=== PATIENT | female | born 1960 | race Caucasian/White ===

== ENCOUNTER → 2017-05-23 | Outpatient (CLI) | payer BC, MEDICARE ==
--- NOTE | 2017-05-28 09:21 | MM ---
Reason for exam: screening (asymptomatic). Last mammogram was performed 2 years ago. History: Patient is postmenopausal. Physical Findings: A clinical breast exam by your physician is recommended on an annual basis and results should be correlated with mammographic findings. MG Screening Mammo w CAD Bilateral CC and MLO view(s) were taken. Prior study comparison: May 16, 2015, mammogram, performed at [facility]. November 30, 2013, mammogram, performed at [facility]. The breast tissue is heterogeneously dense. This may lower the sensitivity of mammography. Scattered round calcifications in the right breast are unchanged. ASSESSMENT: Negative, BI-RAD 1 RECOMMENDATION: Routine screening mammogram of both breasts in 1 year.
== END | disposition home or self-care (01) ==
LOC: RADMAMWWP 13:10
PROVIDERS: ATTEND Obstetrics & Gynecology
DX: Z12.31 Encounter for screening mammogram for malignant neoplasm of breast (principal)

== ENCOUNTER → 2017-11-26 | Outpatient (CLI) | payer OTHER, MEDICARE | END | disposition home or self-care (01) | LOC: LABWHC1 13:22 | PROVIDERS: ATTEND Nurse Practitioner Acute Care | DX: I49.9 Cardiac arrhythmia, unspecified (principal) | CPT/HCPCS: 36415; 93005 ==

== ENCOUNTER → 2018-01-08 | Outpatient (CLI) | payer OTHER, MEDICARE ==
--- NOTE | 2018-01-09 08:22 | MR ---
EXAMINATION TYPE: MR lumbar spine wo con DATE OF EXAM: 01/08/2018 COMPARISON: None HISTORY: Low back pain TECHNIQUE: Multiplanar, multisequence images of the lumbar spine were acquired without intravenous contrast. FINDINGS: Vertebral bodies of the lumbar spine maintains normal vertebral body heights. There is very mild grade 1 anterolisthesis of L4 on L5. Remainder the lumbar spine maintains normal alignment. The re appears to be a unilateral left pars interarticularis defect at L4. 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 Conus medullaris is unremarkable terminating at L1-L2. Multilevel int ervertebral disc desiccation is present. Bone marrow signal is within normal limits. L1-L2: Normal disc appearance without desiccation. No herniation, protrusion or disc bulging. No ca nal stenosis is present. Foramina are patent bilaterally. L2-L3: There is a small broad-based disc bulge without neural foraminal narrowing or spinal canal abhishek nosis. L3-L4: Normal disc appearance without desiccation. No herniation, protrusion or disc bulging. No ca nal stenosis is present. Foramina are patent bilaterally. Mild ligamentum flavum buckling and facet arthropathy are seen. L4-L5: There is mild disc uncovering and a small left eccentric broad-based disc bulge creating minim al left neural foraminal narrowing in combination with facet arthropathy. No spinal canal stenosis or right-sided neural foraminal narrowing. L5-S1: Very small broad-based disc bulge is seen without neural foraminal narrowing or spinal canal s tenosis. Mild facet arthropathy is present at this level. IMPRESSION: 1. Multilevel mild degenerative disc disease without spinal canal stenosis or disc herniation. 2. Minimal left neural foraminal narrowing at L4-L5 as a result of a left eccentric broad-based disc bulge and facet arthropathy. 3. Grade 1 anterolisthesis of L4 on L5 with unilateral left pars interarticularis defect. This result s in mild disc uncovering.
--- NOTE | 2018-01-09 16:45 | MR ---
MRI BRAIN AND CERVICAL SPINE: 05/11/2018 CLINICAL HISTORY: Headache and neck pain TECHNIQUE: Multiplanar, multisequence imaging of the brain and cervical spine was performed without i ntravenous contrast. COMPARISON: 09/20/2010 cervical spine FINDINGS: Brain: Diffusion weighted images demonstrate no evidence of a recent infarct or other diffusion abnormality. There is no extra-axial fluid collection. Few punctate foci of nonspecific white matter change are seen within the periventricular and subcortical white matter with the largest measuring 3 mm in the r ight parietal lobe on FLAIR fat sat image 20. 2 prominent perivascular spaces are seen at the level o f the inferior basal ganglia. Major intracranial flow voids are maintained. The ventricular system a nd cisternal spaces are normal in size and appearance. The brain volume is age appropriate. Midline structures demonstrate normal morphology. The craniocervical junction appears within normal limits. The dural venous sinuses appear patent. Mild mucosal thickening is seen of the ethmoid sinus es. The remaining visualized sinuses are clear and the globes are intact. Cervical Spine: The cervical spine vertebral bodies maintain normal vertebral body heights. There is very mild earle listhesis of C7 on T1, likely on a degenerative basis. This results in disc uncovering. Cervical spin e signal is within normal limits. Bone marrow signal is also within normal limits. Multilevel disc de siccation is seen throughout the cervical spine. C2-C3: There is a small central disc osteophyte complex with severe left facet arthropathy and mild b ilateral uncovertebral hypertrophy resulting in severe left neural foraminal narrowing. Spinal canal and right neural foramen are patent. C3-C4: There is facet arthropathy and uncovertebral hypertrophy in combination with a broad-based dis c bulge that create moderate bilateral neural foraminal narrowing. No significant spinal canal stenos is at this level. C4-C5: There is a small posterior disc osteophyte complex, broad-based disc bulge, facet arthropathy and uncovertebral hypertrophy that create obscuration of the ventral subarachnoid space and impressio n upon the ventral cervical cord without alteration in signal. These result in severe left neural for aminal narrowing, moderate right neural foraminal narrowing and mild spinal canal stenosis. C5-C6: There is a small central disc herniation superimposed upon a broad-based disc bulge with facet arthropathy and uncovertebral hypertrophy. These create mild spinal canal stenosis without alteratio n in signal of the cervical cord, effacing the ventral subarachnoid space and create mild left neural foraminal narrowing. Right neural foramen appears patent. C6-C7: There is a small central disc herniation superimposed upon a broad-based disc bulge that is le ft eccentric. This in combination with uncovertebral hypertrophy and facet arthropathy creating moder ate left neural foraminal narrowing and mild spinal canal stenosis. Right neuroforamen remains patent . C7-T1: Disc uncovering is seen as there is very mild anterolisthesis of C7 on T1. There is also a bro ad-based disc bulge at resulting in minimal spinal canal stenosis and mild bilateral neural foraminal narrowing examination with facet arthropathy and ligamentum flavum buckling. IMPRESSION: 1. Very mild burden nonspecific white matter change with the largest lesion measuring 4 mm. Findings are favored to relate to chronic microangiopathy or migraines given the distribution. 2. Minimal ethmoidal paranasal sinus disease. 3. Multilevel moderate degenerative disc disease of the cervical spine most severe at C4-C5 resulting in severe left neural foraminal narrowing, moderate right neural foraminal narrowing and mild spinal canal stenosis. Other variable degrees of neural foraminal narrowing are described above. 4. Small central disc herniation at C5-C6 that in combination with degenerative change create mild sp inal canal stenosis and mild left neural foraminal narrowing. 5. Small central disc herniation at C6-C7 in combination with degenerative disc disease crating mild spinal canal stenosis and moderate left neural foraminal narrowing. 6. Very mild anterolisthesis of C7 on T1 (grade 1) is seen in addition to mild spinal canal stenosis and mild bilateral neural foraminal narrowing at this level.
== END | disposition home or self-care (01) ==
LOC: RADMRIMAIN 12:47
PROVIDERS: ATTEND Psychiatry & Neurology Neurology
DX: G93.9 Disorder of brain, unspecified (principal); R90.82 White matter disease, unspecified; J32.2 Chronic ethmoidal sinusitis; M50.321 Other cervical disc degeneration at C4-C5 level; M99.71 Connective tissue and disc stenosis of intervertebral foramina of cervical region; M48.02 Spinal stenosis, cervical region; M50.222 Other cervical disc displacement at C5-C6 level; M43.13 Spondylolisthesis, cervicothoracic region; M51.36 Other intervertebral disc degeneration, lumbar region; M99.73 Connective tissue and disc stenosis of intervertebral foramina of lumbar region; M51.26 Other intervertebral disc displacement, lumbar region; M48.8X6 Other specified spondylopathies, lumbar region; M43.16 Spondylolisthesis, lumbar region; Z88.0 Allergy status to penicillin
CPT/HCPCS: 70551; 72141; 72148

== ENCOUNTER 2021-04-11 09:36 | Day surgery (SDC) | payer MEDICARE, OTHER ==
[2021-04-09 14:23] VITALS: BMI 35.5
[2021-04-11 10:26] VITALS: TEMP 97.1
[2021-04-11] MEDS ORDERED: LACTATED RINGERS 1,000 ML IV ONE (10:32)
[2021-04-11] MEDS ORDERED: LIDOCAINE 1% INJ 10MG/ML (20 ML MDV) ONE (10:44)
[2021-04-11] MEDS ORDERED: PROPOFOL 10 MG/ML 20 ML VIAL IV ONE (10:44)
--- NOTE | 2021-04-11 11:11 | P.PCN ---
Date of Procedure: 04/11/21 Procedure(s) Performed: BRIEF HISTORY: Patient is a 61-year-old pleasant female scheduled for an elective colonoscopy as a part of screening for colorectal neoplasia. PROCEDURE PERFORMED: Colonoscopy. PREOPERATIVE DIAGNOSIS: Screening for colon cancer. IV sedation per Anesthesia. PROCEDURE: After informed consent was obtained, the patient, was brought into the endoscopy unit. IV sedation was administered by Anesthesia under continuous monitoring. Digital rectal examination was normal. Initially the Olympus CF-160 flexible video colonoscope was then inserted in the rectum, gradually advanced into the cecum without any difficulty. Careful examination was performed as the scope was gradually being withdrawn. Ileocecal valve and the appendiceal orifice were visualized and appeared normal. Prep was fair.. Mucosa of the cecum, ascending colon, transverse colon, descending colon, sigmoid colon, and rectum appeared normal. Retroflexion was performed in the rectum and no lesions were seen. The patient tolerated the procedure well. IMPRESSION: Normal-appearing colon from rectum to cecum with no evidence of colorectal neoplasia RECOMMENDATIONS: Findings of this examination were discussed with the patient as well as a family. He was advised to have a repeat screening colonoscopy in 10 years.
[2021-04-11 11:36] VITALS: BP 148/78; PULSE 88; RESP 16
== END 2021-04-11 12:00 | disposition home or self-care (01) ==
LOC: ORWHC2ENDO 09:36
PROVIDERS: ATTEND Internal Medicine Gastroenterology
DX: Z12.11 Encounter for screening for malignant neoplasm of colon (principal); I10 Essential (primary) hypertension; J45.909 Unspecified asthma, uncomplicated; M79.7 Fibromyalgia; M19.90 Unspecified osteoarthritis, unspecified site; K21.9 Gastro-esophageal reflux disease without esophagitis; Z79.82 Long term (current) use of aspirin; Z79.899 Other long term (current) drug therapy
CPT/HCPCS: G0121; J2001; J2704

== ENCOUNTER → 2021-06-26 | Outpatient (CLI) | payer MEDICARE ==
--- NOTE | 2021-06-26 12:45 | FL ---
EXAMINATION TYPE: FL barium swallow w video DATE OF EXAM: 06/26/2021 MODIFIED SWALLOW / DEGLUTITION STUDY CLINICAL HISTORY: Dysphagia. TECHNIQUE: Deglutition study is performed utilizing thin liquid barium, honey and nectar thick liqui d barium, barium thick applesauce, and barium coated cracker. 1 minute 26 seconds of fluoro time and 0 images obtained. COMPARISON: None. FINDINGS: The oral and pharyngeal phases show satisfactory initiation and propagation with all modali ties tested. Satisfactory mastication is seen with solid modalities tested. There is no evidence of penetration or aspiration with any modality tested. No significant pharyngeal residue was appreciate d. Towards end of study evaluation of the esophagus showed dysmotility with at least moderate size hi atal hernia. IMPRESSION: No penetration or aspiration observed. Please refer to speech therapist notes for furthe r details if necessary. Esophageal dysmotility with at least moderate sized fixed hiatal hernia is present. Consider surgical referral.
== END | disposition home or self-care (01) ==
LOC: RADFLMAIN 11:29
PROVIDERS: ATTEND Otolaryngology
DX: K22.4 Dyskinesia of esophagus (principal); K44.9 Diaphragmatic hernia without obstruction or gangrene
CPT/HCPCS: 74230

== ENCOUNTER → 2021-08-13 | Outpatient (CLI) | payer MEDICARE ==
--- NOTE | 2021-08-13 13:47 | CT ---
EXAMINATION TYPE: CT chest w con DATE OF EXAM: 08/13/2021 COMPARISON: None HISTORY: Abnormal findings in lung CT DLP: 430.7 mGycm Automated exposure control for dose reduction was used. CONTRAST: CT scan of the chest is performed with IV Contrast, patient injected with 100 mL of Isovue 300. FINDINGS: LUNGS: The lungs are grossly clear, there is no concerning parenchymal mass or nodule identified. T here is no pleural effusion or pneumothorax seen. The tracheobronchial tree is patent. MEDIASTINUM: There are no greater than 1 cm hilar or mediastinal lymph nodes. No pericardial effusi on is seen. Thoracic aorta is of normal caliber. The heart is not enlarged. There is a moderate fixe d hiatal hernia. UPPER ABDOMEN: No significant abnormality appreciated. OTHER: No additional significant abnormality is seen. IMPRESSION: 1. No distinct abnormality of the lungs.
== END | disposition home or self-care (01) ==
LOC: RADCTMAIN 12:52
PROVIDERS: ATTEND Surgery Plastic and Reconstructive Surgery
DX: R91.8 Other nonspecific abnormal finding of lung field (principal)
CPT/HCPCS: 71260; Q9967

== ENCOUNTER → 2021-09-10 | Outpatient (CLI) | payer MEDICARE ==
--- NOTE | 2021-09-10 08:52 | US ---
EXAMINATION TYPE: US gallbladder DATE OF EXAM: 09/10/2021 COMPARISON: NONE CLINICAL HISTORY: R10.11 RUQ Abd pain. Occasional RUQ pain x 5 years EXAM MEASUREMENTS: Liver Length: 15.3 cm Gallbladder Wall: 0.2 cm CBD: 0.4 cm Right Kidney: 9.5 x 4.6 x 4.1 cm Pancreas: visualized portions wnl, limited by overlying midline bowel gas Liver: Liver shows a coarse echotexture Gallbladder: wnl Evidence for sonographic Francois's sign: no CBD: visualized portions wnl, limited by overlying bowel gas Right Kidney: wnl IMPRESSION: There are some limitations the exam. Correlate for possible hepatic steatosis, hepatocell ular disease
== END | disposition home or self-care (01) ==
LOC: RADUSWWP 07:52
PROVIDERS: ATTEND Surgery Plastic and Reconstructive Surgery
DX: R10.11 Right upper quadrant pain (principal)
CPT/HCPCS: 76705

== ENCOUNTER → 2021-10-31 | Outpatient (CLI) | payer MEDICARE ==
[2021-10-31 13:21] LABS: HCT 42.3 % (34.0-46.0); HGB 13.5 gm/dL (11.4-16.0); MCH 28.1 pg (25.0-35.0); MCHC 31.9 g/dL (31.0-37.0); MCV 88.1 fL (80.0-100.0); Mean Platelet Volume 9.1; Platelet Count 200 k/uL (150-450); RDW 12.6 % (11.5-15.5); WBC 5.4 k/uL (3.8-10.6)
== END | disposition home or self-care (01) ==
LOC: LABPAT 11:45
PROVIDERS: ATTEND Surgery Plastic and Reconstructive Surgery
DX: Z01.812 Encounter for preprocedural laboratory examination (principal)
CPT/HCPCS: 85027

== ENCOUNTER 2021-11-01 10:55 | Day surgery (SDC) | payer MEDICARE ==
--- NOTE | 2021-11-01 09:11 | P.GSHP ---
History of Present Illness H&P Date: 11/01/21 CHIEF COMPLAINT: Paraesophageal hiatal hernia with gastroesophageal reflux disease. HISTORY OF PRESENT ILLNESS: The patient is a 61-year-old female who presents with paraesophageal hiatal hernia. She has completed upper endoscopy workup. Now she presents for surgical intervention. PAST MEDICAL HISTORY: Please see list. PAST SURGICAL HISTORY: Please see list. MEDICATIONS: Please see list. ALLERGIES: Please see list. SOCIAL HISTORY: No illicit drug use FAMILY HISTORY: No reports of Crohn disease or ulcerative colitis. REVIEW OF ORGAN SYSTEMS: CONSTITUTIONAL: No reports of fevers or chills. GI: Denies any blood in stools or constipation. PHYSICAL EXAM: VITAL SIGNS: Stable GENERAL: Well-developed pleasant and in no acute distress. HEENT: No scleral icterus. Extraocular movements grossly intact. Moist buccal mucosa. NECK: Supple without lymphadenopathy. CHEST: Unlabored respirations. Equal bilateral excursions. CARDIOVASCULAR: Regular rate and rhythm. Distal 2+ pulses. ABDOMEN: Soft, nondistended. No peritoneal signs. MUSCULOSKELETAL: No clubbing, cyanosis, or edema. SKIN: Well-perfused. Good skin turgor. STUDIES: CT chest and external review demonstrated large incarcerated paraesophageal hiatal hernia with gastric volvulus. This is not independent i nterpretation. ASSESSMENT: 1. Diaphragmatic paraesophageal hiatal hernia with severe gastroesophageal reflux disease. PLAN: 1. Recommend proceeding with a robotic paraesophageal hiatal hernia with possible mesh. 2. Benefits and risks of surgical intervention was discussed including possibility of open technique. 3. Inpatient hospitalization recommended of 2 nights 4. DVT prophylaxis. 5. Antibiotic prophylaxis. 6. She has also completed a very low caloric high-protein diet to address underlying hepatomegaly. 7. Patient's elevated risk due to large incarcerated paraesophageal hiatal hernia. Past Medical History Past Medical History: Asthma, Fibromyalgia, GERD/Reflux, Hypertension, Osteoarthritis (OA) Additional Past Medical History / Comment(s): seasonal allergies, states never treated for HTN., wears compression hose. History of Any Multi-Drug Resistant Organisms: None Reported Past Surgical History: Section, Joint Replacement, Orthopedic Surgery, Tonsillectomy Additional Past Surgical History / Comment(s): ORIF right wrist, left knee arthroscopy, colonoscopy, EGD, left knee replaced 2019, x2, varicose vein surgery. Past Anesthesia/Blood Transfusion Reactions: No Reported Reaction, Motion Sickness Past Psychological History: Anxiety, Depression Smoking Status: Former smoker Past Alcohol Use History: Occasional Additional Past Alcohol Use History / Comment(s): smoked for 8 yrs. around high school years, < pack per week Past Drug Use History: None Reported - Past Family History Mother Family Medical History: No Reported History Father Family Medical History: CVA/TIA Additional Family Medical History / Comment(s): from CVA Medications and Allergies Home Medications Medication Instructions Recorded Confirmed Type Citalopram Hydrobromide [CeleXA] 40 mg PO DAILY 03/01/14 10/30/21 History LORazepam [Ativan] 0.5 mg PO DAILY PRN 03/01/14 10/30/21 History buPROPion HCL [Wellbutrin XL] 300 mg PO DAILY 03/01/14 10/30/21 History Baclofen [Lioresal] 10 mg PO TID PRN 01/11/15 10/30/21 History Aspirin 81 mg PO DAILY 04/09/21 10/30/21 History Cholecalciferol [Vitamin D3 (25 25 mcg PO DAILY 04/09/21 10/30/21 History Mcg = 1000 Iu)] Desipramine HCl [Norpramin] 50 mg PO HS 04/09/21 10/30/21 History Albuterol Sulfate [Ventolin HFA] 1 - 2 puff INHALATION Q6H PRN 10/30/21 10/30/21 History Black Cohosh (Unknown Dose) 1 dose PO DAILY 10/30/21 History Multivit-Min/Iron/Folic/Lutein 1 each PO DAILY 10/30/21 10/30/21 History [Centrum Silver Women Tablet] Omeprazole [PriLOSEC] 40 mg PO AC-LUNCH 10/30/21 10/30/21 History Allergies Allergy/AdvReac Type Severity Reaction Status Date / Time Latex, Natural Rubber Allergy swelling Verified 10/30/21 14:30 with contact amoxicillin trihydrate AdvReac Severe Nausea & Verified 10/30/21 14:30 [From Augmentin] Vomiting potassium clavulanate AdvReac Severe Nausea & Verified 10/30/21 14:30 [From Augmentin] Vomiting
[~2021-11-01 10:55] MED LIST: ACETAMINOPHEN TAB 500 MG TAB PO PRN; CHLORHEXIDINE GLUCONATE 15 ML CUP MUCOUS MEM PRN; DEXAMETHASONE SOD PHOSPHATE 4 MG/ML 1 ML VIAL IV ONE; HEPARIN SODIUM,PORCINE/PF 5,000 UNIT/0.5 ML SYRINGE SQ PRN; HYDROmorphone 0.5 MG/0.5 ML SYRINGE IVP PRN; LIDOCAINE 1% (10MG/ML) FOR IV START INTRADERMA PRN; MELOXICAM 7.5 MG TAB PO PRN; MIDAZOLAM 2 MG/2 ML VIAL IV PRN; ONDANSETRON 4 MG/2 ML VIAL IVP ONE; ONDANSETRON 4 MG/2 ML VIAL IVP PRN; PANTOPRAZOLE 40 MG/10 ML VIAL IVP PRN; fentaNYL (PF) 50 MCG/ML 2 ML AMP IVP PRN
[2021-11-01] MEDS: LACTATED RINGERS 1,000 ML IV SCH ×2 (12:06→22:48)
[2021-11-01 12:44] LABS: Albumin 3.9 g/dL (3.5-5.0); Calcium 9.1 mg/dL (8.4-10.2); Potassium 4.2 mmol/L (3.5-5.1); Total Bilirubin 0.5 mg/dL (0.2-1.3); Total Protein 6.6 g/dL (6.3-8.2)
[2021-11-01] MEDS ORDERED: LACTATED RINGERS 1,000 ML IV ONE (14:20)
[2021-11-01] MEDS ORDERED: GLYCOPYRROLATE 0.2 MG/ML 2 ML VIAL ONE (14:26)
[2021-11-01] MEDS ORDERED: HYDROmorphone (PF) 1 MG/ML ONE (14:26)
[2021-11-01] MEDS ORDERED: SUCCINYLCHOLINE CHLORIDE 100 MG/5 ML SYR IV ONE (14:26)
[2021-11-01] MEDS ORDERED: ROCURONIUM 10 MG/ML (5 ML VIAL) IV ONE (14:26)
[2021-11-01] MEDS ORDERED: NEOSTIGMINE 1 MG/ML 10 ML VIAL ONE (14:26)
[2021-11-01] MEDS ORDERED: PROPOFOL 10 MG/ML 20 ML VIAL IV ONE (14:26)
[2021-11-01] MEDS ORDERED: MIDAZOLAM 2 MG/2 ML VIAL ONE (14:26)
[2021-11-01] MEDS ORDERED: fentaNYL (PF) 50 MCG/ML 2 ML AMP ONE (14:26)
[2021-11-01] MEDS ORDERED: LIDOCAINE 2% INJ 20 MG/ML (2 ML VIAL) ONE (14:26)
[2021-11-01] MEDS ORDERED: KETOROLAC 15 MG/ML 1 ML VIAL ONE (14:26)
[2021-11-01] MEDS ORDERED: BUPIVACAIN-EPI 0.25%-1:200,000 30 ML VIAL SQ ONE (15:04)
[2021-11-01] MEDS ORDERED: HYDROmorphone 1 MG/ML 1 ML SYRINGE IVP PRN (17:03)
--- NOTE | 2021-11-01 17:10 | P.OP ---
Date of Procedure: 11/01/21 Description of Procedure: SURGEON: TAINA ARIZA MD PREOPERATIVE DIAGNOSES: 1. Symptomatic paraesophageal diaphragmatic hiatal hernia, type III 2. Gastroesophageal reflux disease 3. Fibromyalgia 4. Chronic obstructive pulmonary disease 5. Dysphagia 6. Hypertensive heart disease 7. Generalized anxiety disorder 8. Depressive disorder 9. Obesity due to excess calories, BMI 34.1 POSTOPERATIVE DIAGNOSES: 1. Symptomatic paraesophageal diaphragmatic hiatal hernia, type III 2. Gastroesophageal reflux disease 3. Fibromyalgia 4. Chronic obstructive pulmonary disease 5. Dysphagia 6. Hypertensive heart disease 7. Generalized anxiety disorder 8. Depressive disorder 9. Obesity due to excess calories, BMI 34.1 OPERATION: 1. Robotic-assisted da Marixa Xi laparoscopic repair of LARGE incarcerated paraesophageal hiatal hernia, 7 x 5 cm, with [place] Biopatch A 8 x 8 cm. 2. Intraoperative esophagogastroduodenoscopy 3. Placement of esophageal bougie 56-Swiss bougie to address pre-existing dysphagia ANESTHESIA: General with local anesthetic. ESTIMATED BLOOD LOSS: 5 mL SPECIMENS REMOVED: None COMPLICATIONS: None. Condition: stable Disposition: floor FINDINGS: 1. Midline intra-thoracic moderate size incarcerated paraesophageal hiatal hernia 7 x 5 cm, over 30% of stomach 2. Intraoperative upper endoscopy confirms complete closure of hiatal hernia from Hill grade 4 to Hill grade 1 3. Lower esophageal sphincter at 34 cm from the incisors INDICATIONS: The patient is a 89 year-old female who presents with regurgitation, gastroesophageal reflux disease poorly controlled despite medications, and a symptomatic diaphragmatic hiatal hernia. Preoperative workup including upper endoscopy demonstrated a Hill grade 4 lower esophageal valve. She completed swallow studies. Given the severity of symptoms, she had elected for surgical intervention. Benefits and risks including bleeding, infection, recurrence, dysphagia, injury to the lung, need for further surgery was described at length. Informed consent was obtained. DESCRIPTION: The patient was brought into the operating room and placed in supine position. Preoperatively she had received heparin subcutaneously for DVT prophylaxis. After general induction, the abdomen was prepped and draped in standard sterile fashion. The patient had previously voided prior to coming to the operating room. Ioban draping was placed along the abdomen. A timeout protocol was confirmed with the surgical team, for which the patient's name, procedure to be performed including DVT prophylaxis with bilateral SCDs, and preoperative antibiotics were also confirmed. A robotic da Marixa Xi system was prepped and primed. At 12 cm from the xiphoid to just below the umbilicus, proposed port sites were marked with indelible marker along the left axillary line, left mid-clavicular line with each ports were marked 8 cm from each other. A 5 mm 0 degrees laparoscopic trocar entry was performed along the left upper quadrant. The abdomen was insufflated to 15 mmHg pressure was tolerated well. Diagnostic laparoscopy demonstrated no injury to bowel, viscera, or mesentery. No injury had occurred to the small bowel or viscera. Next, one 8 mm robotic port was placed along the right upper abdomen. An 8-mm p ort was were placed along the left lateral abdominal wall. The camera 8-mm port was maintained along the epigastrium via the hernia defect. Another 12 mm port was placed along the left upper abdominal wall after exchanging the 5 mm port. Please note that the ports were placed at least 20 cm away from the target anatomy. Care was taken to check that each robotic arm were safely away from collision with the bed or the patient. At the epigastrium, a small sized Suzan liver retractor was placed under direct visualization with the Iron Speck Dyer placed under the right shoulder of the patient. All robotic arms were used. The patient was repositioned in reverse Trendelenburg position at 21-degrees after lowering the bed. The robot was docked above the right side of the patient. Using a grasper for arm 3, a grasper for arm 1, including vessel sealer for arm 2, the robotic system was docked and primed as described. Instruments were interchanged by the events administrative assistant. I had sat at the console. The gastrohepatic ligament was cleaved using a vessel sealer. The hiatal hernia sac was retracted from the intrathoracic portion into the abdomen. Next, the phrenoesophageal ligament was mobilized and the distal esophagus was mobilized circumferentially. The left and right crura was identified. Circumferentially, the hernia sac was excised and brought into the peritoneal cavity. Moderate dissection into the mediastinum towards the azygous vein and along the aorta was performed to release the esophagus into the abdominal cavity. Additionally, adhesions about the mid body of the stomach and short gastrics were also released. Care was taken to avoid any gastrotomy. The measured defect was consistent with 7 cm axial length and 5 cm in width. After dissection, the distal esophagus of 3 cm was brought into the abdominal cavity. Once the hiatus and crura was dissected, 2-0 VLOC nonabsorbable suture was placed to re-approximate the diaphragmatic hiatus posteriorly. To buttress the repair, a [place] Biopatch A was prepared along the back table and cut in half of a stanley-hole fashion as to reinforce the repair as an underlay. The mesh was placed along the crural repair and tagged using horizontal mattress sutures using 2-0 VLOC. Secondary to her esophageal dysmotility including dysphagia, intraoperative placement of 56-Swiss bougie was selected as her frame was small. I went to the head of the bed to perform intraoperative esophagogastroduodenoscopy. An Olympus gastroscope was passed through posterior oropharynx. Retroflexion of the scope confirmed a Hill grade 1 lower esophageal valve. , Bougie was passed and left for 1 minute to allow dilation of her esophagus. The scope was re- entered confirmed no esophageal or gastric tears. The stomach had been desufflated. No evidence of leaks were found of the esophagus or stomach. The squamocolumnar junction and hiatus was placed at 34 cm from the incisors. The GI tract with desufflated This concluded the endoscopic portion of the case. The robot was undocked from the patient. I re-scrubbed into the case. All instruments and pneumoperitoneum and specimens were evacuated from the abdominal cavity. Incisions were reapproximated using 4-0 Monocryl in an interrupted subcuticular fashion. Liquid glue was applied to the skin. Local anesthetic was infiltrated in all wounds for postop analgesia. Multiple intra-abdominal films were obtained. At the end of the procedure, needle, sponge, and instrument count was verified correct by the surgical consultant. The patient had tolerated the procedure well and was taken to the postanesthesia unit in stable condition. Intraoperative films were reviewed with the patient's family who was pleased with the level of care.
[2021-11-01] MEDS: METOCLOPRAMIDE 5 MG/ML 2 ML VIAL IVP SCH (18:14)
[2021-11-01] MEDS: DEXAMETHASONE SOD PHOSPHATE 4 MG/ML 1 ML VIAL IVP SCH (18:16)
[2021-11-01] MEDS: ONDANSETRON 4 MG/2 ML VIAL IVP SCH (18:17)
[2021-11-01] MEDS: ACETAMINOPHEN IV (For NPO) 1,000 MG in EMPTY BAG 1 BAG IVPB SCH (18:34)
[2021-11-02] MEDS: ONDANSETRON 4 MG/2 ML VIAL IVP SCH ×3 (00:04→12:25)
[2021-11-02] MEDS: METOCLOPRAMIDE 5 MG/ML 2 ML VIAL IVP SCH ×3 (00:04→12:24)
[2021-11-02] MEDS: DEXAMETHASONE SOD PHOSPHATE 4 MG/ML 1 ML VIAL IVP SCH ×3 (00:04→12:24)
[2021-11-02] MEDS: ACETAMINOPHEN IV (For NPO) 1,000 MG in EMPTY BAG 1 BAG IVPB SCH ×3 (00:06→12:22)
[2021-11-02 06:27] VITALS: BP 117/70; PULSE 84; RESP 20; TEMP 98.2
--- NOTE | 2021-11-02 08:12 | FL ---
EXAMINATION TYPE: FL esophagus cervic/pharynx DATE OF EXAM: 11/02/2021 LIMITED UGI-ESOPHAGRAM: CLINICAL HISTORY: Gastroesophageal reflux and hiatal hernia, for Misael fundoplication surgery yeste rday. TECHNIQUE: Limited esophagram is performed utilizing 20 oz of Isovue-370. A total of 16 seconds of f luoroscopic time was utilized during procedure and 13 images obtained. FINDINGS: The patient swallowed contrast without difficulty or delay. Esophageal peristalsis and mo tility are within normal limits. There is good flow of contrast along the diaphragmatic hiatus into t he stomach, there is no evidence of contrast extravasation to suggest leak. No persistent hiatal flora ia is seen. Patient remains asymptomatic. IMPRESSION: No evidence of leak or significant obstruction status post Devendra fundoplication surgery yesterday.
[2021-11-02] MEDS ORDERED: ENOXAPARIN 30 MG/0.3 ML SYRINGE SQ SCH (09:00)
--- NOTE | 2021-11-02 09:05 | P.DS ---
Providers Expected date of discharge: 11/02/21 Attending physician: Karie Lange Primary care physician: Cameron Henley MD Hospital Course: POSTOPERATIVE DIAGNOSES: 1. Symptomatic paraesophageal diaphragmatic hiatal hernia, type III 2. Gastroesophageal reflux disease 3. Fibromyalgia 4. Chronic obstructive pulmonary disease 5. Dysphagia 6. Hypertensive heart disease 7. Generalized anxiety disorder 8. Depressive disorder 9. Obesity due to excess calories, BMI 34.1 COURSE: The patient is a 61 year-old female who presented with regurgitation, gastroesophageal reflux disease poorly controlled despite medications, and a symptomatic diaphragmatic hiatal hernia. Preoperative workup including upper endoscopy demonstrated a Hill grade 4 lower esophageal valve. She completed swallow studies. Given the severity of symptoms, she had elected for surgical intervention. Post operatively, she was tolerating liquid diet without dysphagia. Dietary guidelines were reviewed in detail. Her pain as well controlled. Esophagram demonstrated no leak. Patient was stable for discharge. Procedures: OPERATION: 1. Robotic-assisted da Marixa Xi laparoscopic repair of LARGE incarcerated paraesophageal hiatal hernia, 7 x 5 cm, with [place] Biopatch A 8 x 8 cm. 2. Intraoperative esophagogastroduodenoscopy 3. Placement of esophageal bougie 56-Estonian bougie to address pre-existing dysphagia ANESTHESIA: General with local anesthetic. ESTIMATED BLOOD LOSS: 5 mL SPECIMENS REMOVED: None COMPLICATIONS: None. Condition: stable Disposition: floor FINDINGS: 1. Midline intra-thoracic moderate size incarcerated paraesophageal hiatal hernia 7 x 5 cm, over 30% of stomach 2. Intraoperative upper endoscopy confirms complete closure of hiatal hernia from Hill grade 4 to Hill grade 1 3. Lower esophageal sphincter at 34 cm from the incisors Patient Condition at Discharge: Good Plan - Discharge Summary Discharge Rx Participant: No New Discharge Prescriptions: New bisacodyL [Dulcolax] 5 mg PO DAILY PRN #10 tab PRN Reason: Constipation Acetaminophen Tab [Tylenol Tab] 1,000 mg PO Q6HR PRN #30 tablet PRN Reason: Pain Ondansetron Odt [Zofran Odt] 4 mg PO Q8HR PRN #9 tab PRN Reason: Nausea Simethicone 40 mg/0.6 ml Drops [Mylicon Drops] 40 mg PO PCHS PRN #30 ml PRN Reason: Gas Omeprazole [PriLOSEC] 40 mg PO DAILY #30 cap Continue LORazepam [Ativan] 0.5 mg PO DAILY PRN PRN Reason: Anxiety buPROPion HCL [Wellbutrin XL] 300 mg PO DAILY Citalopram Hydrobromide [CeleXA] 40 mg PO DAILY Baclofen [Lioresal] 10 mg PO TID PRN PRN Reason: Pain Aspirin 81 mg PO DAILY Multivit-Min/Iron/Folic/Lutein [Centrum Silver Women Tablet] 1 each PO DAILY Desipramine HCl [Norpramin] 50 mg PO HS Albuterol Sulfate [Ventolin HFA] 1 - 2 puff INHALATION Q6H PRN PRN Reason: Shortness Of Breath Omeprazole [PriLOSEC] 40 mg PO AC-LUNCH Discontinued Cholecalciferol [Vitamin D3 (25 Mcg = 1000 Iu)] 25 mcg PO DAILY Black Cohosh (Unknown Dose) 1 dose PO DAILY Discharge Medication List Citalopram Hydrobromide [CeleXA] 40 mg PO DAILY 03/01/14 [History] LORazepam [Ativan] 0.5 mg PO DAILY PRN 03/01/14 [History] buPROPion HCL [Wellbutrin XL] 300 mg PO DAILY 03/01/14 [History] Baclofen [Lioresal] 10 mg PO TID PRN 01/11/15 [History] Aspirin 81 mg PO DAILY 04/09/21 [History] Desipramine HCl [Norpramin] 50 mg PO HS 04/09/21 [History] Albuterol Sulfate [Ventolin HFA] 1 - 2 puff INHALATION Q6H PRN 10/30/21 [History] Multivit-Min/Iron/Folic/Lutein [Centrum Silver Women Tablet] 1 each PO DAILY 10/30/21 [History] Omeprazole [PriLOSEC] 40 mg PO AC-LUNCH 10/30/21 [History] Acetaminophen Tab [Tylenol Tab] 1,000 mg PO Q6HR PRN #30 tablet 11/01/21 [Rx] Omeprazole [PriLOSEC] 40 mg PO DAILY #30 cap 11/01/21 [Rx] Ondansetron Odt [Zofran Odt] 4 mg PO Q8HR PRN #9 tab 11/01/21 [Rx] Simethicone 40 mg/0.6 ml Drops [Mylicon Drops] 40 mg PO PCHS PRN #30 ml 11/01/21 [Rx] bisacodyL [Dulcolax] 5 mg PO DAILY PRN #10 tab 11/01/21 [Rx] Follow up Appointment(s)/Referral(s): Karie Lange MD [STAFF PHYSICIAN] - 11/06/21 9:00 am (Telehealth sometime in the morning of november 06 at 9:00) Patient Instructions/Handouts: Acetaminophen (By mouth), Simethicone (By mouth), Omeprazole (By mouth), Ondansetron (By mouth), Bisacodyl (By mouth), Hiatal Hernia (DC), Laparoscopic Hiatal Hernia Repair (DC) Activity/Diet/Wound Care/Special Instructions: Liquid diet only for 2 weeks until November 15 No lifting over 4 pounds in 4 weeks, December 01November shower No soaking in bath tubs for 2 weeks, November 15 Please notify your surgeon if you develop nausea and vomiting including new onset of abdominal pain. Please ambulate at all times. Use Simethicone, Gas-X, Tylenol and ibuprofen or Aleve scheduled for the next 24-48 hours for best pain relief. Use ice along incisions for the today to prevent swelling. Please open, cut, crush pills larger than the size of a tic tack No carbonated beverages. No straws. Do not remove scopolamine patch for 3 days, if present Avoiding Gas Avoid drinking through a straw. Do not chew gum or tobacco. These actions cause you to swallow air, which produces excess gas in your stomach. Chew with your mouth closed. Avoid any foods that cause stomach gas and distention. These foods include corn, dried beans, peas, lentils, onions, broccoli, cauliflower and any food from the cabbage family. Avoid carbonated drinks, alcohol, citrus and tomato products. Carbonated drinks (sodas) are not allowed for the first six to eight weeks after surgery. After this time you can try them again in small amounts Clear Liquid Diet The first diet after surgery is the clear liquid diet. It includes the following liquids: Apple juice Cranberry juice Grape juice Chicken broth Beef broth Flavored gelatin (Jell-O) Decaf tea and coffee Caffeinated beverages are permitted based on tolerance [place] ice Full Liquid Diet The full liquid diet contains anything on the clear liquid diet, plus: Milk, soy, rice and almond (no chocolate) Cream of wheat, cream of rice, grits Strained creamed soups (no tomato or broccoli) Vanilla and strawberry-flavored ice cream Sherbet Blended, custard styled or whipped yogurt (plain or vanilla only) Vanilla and butterscotch pudding (no chocolate or coconut) Nutritional drinks including Ensure, Boost, [place] Instant Breakfast (no chocolate-flavored) Note: Dairy products, such as milk, ice cream and pudding, may cause diarrhea in some people just after surgery. You may need to avoid milk products. If so, substitute them with lactose-free beverages, such as soy, rice, Lactaid or almond milks. Discharge Disposition: HOME SELF-CARE
[2021-11-02 11:57] VITALS: BMI 34.1
== END 2021-11-02 13:40 | disposition home or self-care (01) ==
LOC: OR 10:55 → 5NMEDONC 16:44 → OR 11-02 13:40
PROVIDERS: ATTEND Surgery Plastic and Reconstructive Surgery
DX: K44.9 Diaphragmatic hernia without obstruction or gangrene (principal); K21.9 Gastro-esophageal reflux disease without esophagitis; M79.7 Fibromyalgia; J44.9 Chronic obstructive pulmonary disease, unspecified; R13.10 Dysphagia, unspecified; I11.9 Hypertensive heart disease without heart failure; F41.1 Generalized anxiety disorder; F32.A Depression, unspecified; E66.09 Other obesity due to excess calories; Z68.34 Body mass index [BMI] 34.0-34.9, adult; M19.90 Unspecified osteoarthritis, unspecified site; Z98.891 History of uterine scar from previous surgery; Z96.652 Presence of left artificial knee joint; Z98.890 Other specified postprocedural states; Z87.891 Personal history of nicotine dependence; Z82.3 Family history of stroke; Z79.82 Long term (current) use of aspirin; Z79.899 Other long term (current) drug therapy; Z88.0 Allergy status to penicillin; Z91.040 Latex allergy status
CPT/HCPCS: 43282; S2900; 74210; 80053

== ENCOUNTER → 2022-06-11 | Outpatient (CLI) | payer MEDICARE ==
--- NOTE | 2022-06-12 08:14 | MM ---
Reason for Exam: Screening (asymptomatic). Last mammogram was performed 2 year(s) and 2 month(s) ago. Patient History: Menarche at age 12. First Full-Term at age 25. Postmenopausal. Risk Values: Kavya 5 year model risk: 1.7%. NCI Lifetime model risk: 7.7%. Prior Study Comparison: 11/30/2013 Screening Mammogram, [facility]. 05/16/2015 Screening Mammogram, [facility]. 05/23/2017 Bilateral Screening Mammogram, [facility]. 02/15/2020 Bilateral MG screening mammo w CAD - 2, [facility]. 04/27/2020 Bilateral MG work up mamm w CAD BILAT, [facility]. Tissue Density: The breast tissue is heterogeneously dense. This may lower the sensitivity of mammography. Findings: Analyzed By CAD. There are a few scattered round calcifications redemonstrated throughout the bilateral breasts. There is no suspicious new group of microcalcifications or new suspicious mass in either breast. Overall Assessment: Benign, BI-RAD 2 Management: Screening Mammogram of both breasts in 1 year. Some advise bilateral breast ultrasound surveillance in patients with background dense tissue. A clinical breast exam by your physician is recommended on an annual basis and results should be correlated with mammographic findings. Electronically signed and approved by: Jean Dennis M.D.
== END | disposition home or self-care (01) ==
LOC: RADMAMWWP 16:33
PROVIDERS: ATTEND Family Medicine
DX: Z12.31 Encounter for screening mammogram for malignant neoplasm of breast (principal); Z78.0 Asymptomatic menopausal state
CPT/HCPCS: 77063; 77067

== ENCOUNTER → 2023-05-02 | Outpatient (CLI) | payer MEDICARE ==
--- NOTE | 2023-05-02 11:49 | CA ---
Stress Echo Report Janina Thompson Age: 63 Gender: F : 1960 Exam Date: 05/02/2023 09:41 Exam Location: [place] Stress Ht (in): 65 Wt (lb): 195 Ordering Physician: Terence Watkins MD Referring Physician: Eulalia Copeland PAC [place] Buyer: Kayleen Antonio [facility] Technologist [employer] Procedure CPT: Indication: Z73.89 ICD-9 Codes: Rhythm: Patient History: Cardiac Medications: Medications in past 24 hours: Contrast: N/A Stress Results Protocol: Tobi Total dose(mL): Exercise Duration (min:sec): 4:[address] Depression (mm): Angina Score: Yates Score: METS: 6.4 Resting HR: 92 Resting BP: 124 / 86 Peak HR: 141 Peak BP: 175 / 82 Max Predicted HR: 157 90 % Max Predicted HR Target HR: 133 Double Product: 19394 Stress Summary: BP Response: Reason for Termination: Reached target heart rate or work-load Cardiac Symptoms: NONE ECG Analysis Resting ECG: Normal sinus rhythm, normal ECG Stress ECG: No significant ST or T-wave changes diagnostic for ischemia Arrhythmia: Occasional PVCs. No sustained arrhythmias Echo Analysis Resting Echo: Normal global and regional systolic function. No obvious regional wall motion abnormality. Peak Echo Analysis: Normal augmentation off global and segmental systolic function. No obvious stress-induced regional wall motion abnormality. MEASUREMENTS (Male/Female) Normal Values CONCLUSIONS Poor exercise tolerance for patient's age achieving only 6.4 metastases Nonischemic ECG response to exercise Nonischemic echocardiographic response to exercise Overall normal treadmill stress echocardiogram Dr Ramon Freed (Electronically Signed) Final Date: 02 May 2023 11:48
== END | disposition home or self-care (01) ==
LOC: RADNMMAIN 09:09
PROVIDERS: ATTEND Family Medicine
DX: Z73.89 Other problems related to life management difficulty (principal)
CPT/HCPCS: 93351

== ENCOUNTER → 2023-07-10 | Outpatient (CLI) | payer MEDICARE ==
--- NOTE | 2023-07-11 19:25 | MM ---
Reason for Exam: Screening (asymptomatic). Last mammogram was performed 1 year(s) and 1 month(s) ago. Patient History: Menarche at age 12. First Full-Term at age 25. Postmenopausal. Risk Values: Kavya 5 year model risk: 1.7%. NCI Lifetime model risk: 7.4%. Prior Study Comparison: 02/15/2020 Bilateral MG screening mammo w CAD - 2, [facility]. 04/27/2020 Bilateral MG work up mamm w CAD BILAT, [facility]. 06/11/2022 Bilateral MG 3D screening mammo w/cad, [facility]. Tissue Density: The breast tissue is extremely dense which could obscure a lesion on mammography. Findings: Analyzed By CAD. Pattern appears symmetrical and stable. Scattered benign-appearing calcifications are present bilaterally. No significant interval changes are evident. No suspicious groups of microcalcifications, spiculated or lobular masses, architectural distortion or other secondary signs of malignancy are mammographically apparent. Overall Assessment: Benign, BI-RAD 2 Management: Screening Mammogram of both breasts in 1 year. A negative mammogram report should not preclude additional follow up of suspicious palpable abnormalities. Patient should continue monthly self breast exam. A clinical breast exam by your physician is recommended on an annual basis and results should be correlated with mammographic findings. Electronically signed and approved by: Israel Welsh D.O. Radiologis
== END | disposition home or self-care (01) ==
LOC: RADMAMWWP 12:57
PROVIDERS: ATTEND Family Medicine
DX: Z12.31 Encounter for screening mammogram for malignant neoplasm of breast (principal); Z78.0 Asymptomatic menopausal state
CPT/HCPCS: 77063; 77067